=== PATIENT | male | born 1960 | race Caucasian/White ===

== ENCOUNTER 2020-08-09 22:08 | Outpatient (CLI) | payer MEDICARE, OTHER | END 2020-08-09 22:09 | disposition short-term general hospital (02) | LOC: EMS 22:08 | DX: M25.552 Pain in left hip (principal); W18.39XA Other fall on same level, initial encounter; Y92.009 Unspecified place in unspecified non-institutional (private) residence as the place of occurrence of the external cause | CPT/HCPCS: A0425; A0429 ==